=== PATIENT | female | born 1975 | race Caucasian/White ===

== ENCOUNTER 2021-07-25 16:23 | Emergency (ER) | payer OTHER, SELFPAY ==
[2021-07-25 16:25] VITALS: BP 115/71; PULSE 78; RESP 16; TEMP 36.7; O2SAT 96; BMI 34.9
[2021-07-25 16:44] VITALS: BMI 34.9
--- NOTE | 2021-07-25 16:46 | XR_ITS ---
PROCEDURE INFORMATION: Exam: XR Left Wrist Exam date and time: 07/25/2021 4:46 PM Age: 46 years old Clinical indication: Left; Patient HX: Fall, wrist pain TECHNIQUE: Imaging protocol: XR Left wrist. Views: 3 or more views. COMPARISON: No relevant prior studies available. FINDINGS: Bones/joints: There is a lucency through the distal left radius that is seen best on the lateral view. The finding is compatible with a nondisplaced fracture. It is suspected to be intra-articular. Soft tissues: Normal. IMPRESSION: Nondisplaced distal left radial fracture
--- NOTE | 2021-07-25 16:46 | HMH.EDUPEXT ---
ED Disposition Clinical Impression: Radius fracture Qualifiers: Encounter type: initial encounter Radius location: distal Fracture type: closed Fracture morphology: other intra-articular Laterality: left Qualified Code(s): S52.572A - Other intraarticular fracture of lower end of left radius, initial encounter for closed fracture Disposition: Home, Self-Care Condition on Discharge: Fair Instructions: DI for Wrist Fracture Prescriptions: Hydrocod/Acet 5/325 mg [Hamill 5/325mg tablet] 1 tab PO Q4HP PRN #16 tab PRN Reason: Wrist pain Transmission Status: Received by [facility] Referrals: Manny Lara [Primary Care Provider] - Eliel Hernandez MD [Staff Physician] - 3 days (Distal intra-articular left radius fx) - Critical Care Critical Care Time: No Attestation: On 07/25/21, the high probability of a clinically significant, sudden or life threatening deterioration of the following system(s) required my full and direct attention, intervention and personal management. The time I documented below is in addition to time spent performing reported procedures but includes the following listed in this critical care notation. Medical Decision Making - Medical Records Medical records reviewed: Yes: I reviewed the patient's medical records. - Phong Inquiry Pt receiving controlled substance: Yes Phong was queried for this patient: Yes Risks and benefits of using a controlled substance: were discussed with pt by me Vital Signs: 07/25/21 16:25 Temperature 98.1 F Temperature Source Oral Pulse Rate [Right Radial] 78 Respiratory Rate 16 Blood Pressure [Right Arm] 115/71 Blood Pressure Mean [Right Arm] 85 Blood Pressure Source [Right Arm] Automatic Cuff Blood Pressure Position [Right Arm] Sitting 02 Sat by Pulse Oximetry 96 Oxygen Delivery Method Room Air Orders (Tests/Meds): ED MEDICATIONS Discontinued Medications Generic Name Dose Route Start Last Admin Trade Name Freq PRN Reason Stop Dose Admin Hydrocodone Bitart/Acetaminophen 1 tab 07/25/21 17:49 Hydrocodone/Apap 5/325 Mg Tablet PO 07/25/21 17:50 ONCE ONE Ketorolac Tromethamine 60 mg 07/25/21 16:49 07/25/21 16:54 Ketorolac 60mg/2ml Vial IM 07/25/21 16:50 60 mg ONCE ONE Administration - Radiology Data #1 Image(s): Wrist Image Reviewed: Yes I reviewed the patient's radiology image, Yes I have reviewed radiologist's interpretation Preliminary Findings: Abnormal (distal radius fx) Upper Extremity HPI - General Stated Complaint: AO 07/25 Fell injured Left wrist Time Seen by Provider: 07/25/21 16:46 Source of Information: Patient Limitations: No Limitations - History of Present Illness HPI narrative: The patient presents to the emergency department complaining of a left wrist injury. She was stepping off a tractor with a wet boots and slipped and tried to catch herself with her left hand as she was falling backwards. This happened around noon today. She denies any other injuries. She has taken ibuprofen and has placed her mother's wrist splint on her self. MD complaint: injury to: left, wrist - Related Data Previous Rx's Medication Instructions Recorded Hydrocod/Acet 5/325 mg [Hamill 1 tab PO Q4HP PRN #16 tab 07/25/21 5/325mg tablet] Allergies Allergy/AdvReac Type Severity Reaction Status Date / Time sertraline [From Zoloft] Allergy Intermediate Verified 07/25/21 16:46 [facility] History - Hepatitis A Screen Drug use history?: No Attestation statement:: This patient has been screened for Hepatitis A risk factors. I have reviewed the patient's past medical history: Yes ROS Obtained: Yes All systems reviewed & no additional complaints Physical Exam - General General appearance: alert, in no apparent distress - Head Head exam: atraumatic, normocephalic, normal inspection - Eye Eye exam: Present: normal appearance, PERRL, EOMI - ENT ENT exam: Present: normal exam
--- NOTE | 2021-07-25 16:50 | PC.NURSE ---
Notified Rad of xray
[2021-07-25 19:16] VITALS: BP 120/73; PULSE 72; RESP 16; TEMP 36.7; O2SAT 97
== END 2021-07-25 19:27 | disposition home or self-care (01) ==
PROVIDERS: Emergency Provider Emergency Medicine; PCP Family Medicine
DX: S52.572A Other intraarticular fracture of lower end of left radius, initial encounter for closed fracture (principal); W01.0XXA Fall on same level from slipping, tripping and stumbling without subsequent striking against object, initial encounter; Y92.73 Farm field as the place of occurrence of the external cause
CPT/HCPCS: 29125; 73110; 99283

== ENCOUNTER → 2021-08-01 14:46 | Outpatient (CLI) | payer OTHER, SELFPAY ==
--- NOTE | 2021-08-01 14:51 | XR_ITS ---
PROCEDURE: XR ELBOW LT MIN 3V CLINICAL INDICATION: left elbow pain COMPARISON: No exams were available for comparison FINDINGS: No fracture or dislocation. No lytic or blastic change. There is normal mineralization. The joint spaces are well-preserved. No significant degenerative/arthritic changes. No erosive changes evident. Other findings:None. IMPRESSION: No acute findings. Dictated by: Sampson Willard MD 08/01/2021 15:14 Sampson Willard MD in [place] 08/01/2021 15:14
--- NOTE | 2021-08-01 14:52 | XR_ITS ---
PROCEDURE: XR WRIST LT MIN 3V CLINICAL INDICATION: left wrist fx COMPARISON: CR XR WRIST LT MIN 3V from 07/25/2021 FINDINGS: Transverse distal radial fracture with intra-articular extension once again noted not significantly changed. There is a small fragment along the dorsal aspect of the distal radius. IMPRESSION: No change nondisplaced distal radial fracture with good alignment Dictated by: Sampson Willard MD 08/01/2021 15:13 Sampson Willard MD in [place] 08/01/2021 15:13
== END ==
PROVIDERS: PCP Family Medicine; Visit Provider Orthopaedic Surgery
DX: S52.92XA Unspecified fracture of left forearm, initial encounter for closed fracture (principal); W19.XXXA Unspecified fall, initial encounter
CPT/HCPCS: 73080; 73110

== ENCOUNTER → 2021-08-08 12:38 | Outpatient (CLI) | payer OTHER, SELFPAY ==
--- NOTE | 2021-08-08 12:42 | XR_ITS ---
PROCEDURE: XR WRIST LT MIN 3V CLINICAL INDICATION: left distal radius fx, in cast COMPARISON: CR XR WRIST LT MIN 3V from 07/25/2021 CR XR WRIST LT MIN 3V from 08/01/2021 FINDINGS: There is a cast in place Nondisplaced distal radial fracture is once again noted. There is good alignment. Other findings:None. IMPRESSION: Good alignment status post closed reduction distal radial fracture Dictated by: Sampson Willard MD 08/08/2021 13:57 Sampson Willard MD in [place] 08/08/2021 13:57
== END ==
PROVIDERS: PCP Family Medicine; Visit Provider Orthopaedic Surgery
DX: S52.502A Unspecified fracture of the lower end of left radius, initial encounter for closed fracture (principal)
CPT/HCPCS: 73110

== ENCOUNTER → 2021-09-05 09:16 | Outpatient (CLI) | payer OTHER, SELFPAY ==
--- NOTE | 2021-09-05 09:20 | XR_ITS ---
PROCEDURE: XR WRIST LT MIN 3V CLINICAL INDICATION: LT wrist fx COMPARISON: CR XR WRIST LT MIN 3V from 07/25/2021 CR XR WRIST LT MIN 3V from 08/01/2021 CR XR WRIST LT MIN 3V from 08/08/2021 FINDINGS: Status post cast removal. Nondisplaced transverse fracture of the distal radius is once again noted which extends into the articular surface. Fracture line is still visible although somewhat less distinct. The joint spaces are well-preserved. No significant degenerative/arthritic changes. No erosive changes evident. Other findings:None. IMPRESSION: Nondisplaced transverse fracture distal radius with fracture line somewhat less distinct which may indicate early healing Dictated by: Sampson Willard MD 09/05/2021 10:21 Sampson Willard MD in [place] 09/05/2021 10:21
== END ==
PROVIDERS: PCP Family Medicine; Visit Provider Orthopaedic Surgery
DX: S52.572A Other intraarticular fracture of lower end of left radius, initial encounter for closed fracture (principal)
CPT/HCPCS: 73110

== ENCOUNTER 2021-09-05 10:29 | Outpatient (RCR) | payer OTHER, SELFPAY | END 2021-09-05 11:25 | disposition home or self-care (01) | LOC: OT 10:29 | PROVIDERS: Visit Provider Orthopaedic Surgery | DX: S52.92XA Unspecified fracture of left forearm, initial encounter for closed fracture (principal) | CPT/HCPCS: 97763 ==

== ENCOUNTER → 2021-09-13 08:56 | Outpatient (CLI) | payer OTHER, SELFPAY ==
--- NOTE | 2021-09-13 08:56 | XR_ITS ---
PROCEDURE: XR DEXA AXIAL SKELETON CLINICAL HISTORY: evaluate for osteoporosis COMPARISON: No exams were available for comparison FINDINGS: The right hip BMD is 0.862 with a T-score of 0.1. The left hip BMD is 0.924 with a T-score of 0.7. The lumbar spine BMD is 1.184 with a T-score of 1.2. IMPRESSION: This patient is considered normal according to the World Health Organization criteria. Fracture risk is low. Based on these results a follow-up exam is recommended in 2 year. Dictated by: Sampson Willard MD 09/18/2021 07:25 Sampson Willard MD in [place] 09/18/2021 07:25
== END ==
PROVIDERS: PCP Family Medicine; Visit Provider Orthopaedic Surgery
DX: Z13.820 Encounter for screening for osteoporosis (principal); S52.92XD Unspecified fracture of left forearm, subsequent encounter for closed fracture with routine healing
CPT/HCPCS: 77080